=== PATIENT | male | born 1955 | race Caucasian/White ===

== ENCOUNTER 2017-02-24 08:54 | Emergency (ER) | payer OTHER ==
[2017-02-24 09:05] VITALS: BP 140/83; PULSE 79; O2SAT 97
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
[2017-02-24 10:09] LABS: Collection Type VOID; Leukocyte Esterase NEGATIVE (NEGATIVE)
[2017-02-24 10:10] LABS: ADD URINE CULTURE? NO (NO); Bilirubin NEGATIVE (NEGATIVE); Blood NEGATIVE Ery/ul (0-5); COMPLETE URINE MICROSCOPIC? NO; Glucose NEGATIVE (NEGATIVE)
[2017-02-24 10:18] LABS: BASOPHIL % 0.3 % (0.0-0.4); Eosinophil % 3.1 % (0.00-5.0); Lymphocytes % 27.5 % (24.0-44.0); Mean Cell Volume 87.9 fl (78-100); Mean Corpuscular Hemoglobin 29.4 pg (26-32); Mean Platelet Volume 11.2 fl (6-9.5); Monocytes % 11.1 % (0.0-12.0); Platelet Count 191 K/mm3 (150-450); Red Blood Count 5.13 M/mm3 (4.1-5.6); Red Cell Distribution Width 14.3 % (11.5-14.0); White Blood Count 7.5 K/mm3 (4.0-10.5)
[2017-02-24 10:22] LABS: ALBUMIN 3.7 g/dL (3.4-5.0); ALKALINE PHOSPHATASE 51 U/L (46-116); ANION GAP 12.1 MEQ/L (5-15); BLOOD UREA NITROGEN 15 mg/dL (9-20); CHLORIDE 103 mEq/L (98-107); Carbon Dioxide 28.5 mEq/L (21-32); Glucose 105 MG/DL (70-110); Potassium 3.8 mEq/L (3.5-5.1); SGOT/AST 22 U/L (15-37); SGPT/ALT 39 U/L (12-78); SODIUM 140 mEq/L (136-145); Total Protein 7.1 gm/dL (6.4-8.2)
[2017-02-24 10:25] LABS: ACETAMINOPHEN < 2.0 ug/ml (10-30)
--- NOTE | 2017-02-24 10:29 | XRAY ---
Exam: Two-view chest from 02/24/2017. Comparison: None. Indication: Become short of breath when he lies down. Findings: Upright PA and lateral chest films were obtained. The transverse heart size is normal. The pulmonary vascular markings are not congested. I see evidence of prior sternotomy. Correlate with surgical history. The dmitry and mediastinal structures appear unremarkable. There is a thin transverse strand of plate atelectasis or scarring at the anterior lung base on the lateral image. This is not definitely seen on the PA view. The remainder of the lung [place] appears clear without air space infiltrates, pneumothorax, or pleural fluid. No acute osseous abnormality is seen. Mild lower thoracic anterior vertebral endplate spurring is seen. Impression: 1. No acute cardiopulmonary process is seen. 2. I see evidence of prior sternotomy as well as a short transverse linear strand of scarring or subsegmental atelectasis at the anterior lung base on the lateral radiograph.
[2017-02-24 10:44] LABS: TROPONIN < 0.017 ng/ml (0.000-0.056)
== END 2017-02-24 11:12 | disposition home or self-care (01) ==
LOC: ED 08:54
DX: G47.00 Insomnia, unspecified (principal); F41.9 Anxiety disorder, unspecified; R06.02 Shortness of breath
CPT/HCPCS: 36000; 36415; 71020; 80053; 80307; 80320; 81002; 83880; 83986; 84484; 85025; 93005; 99284; G0481

== ENCOUNTER 2017-03-16 08:26 | Emergency (ER) | payer OTHER ==
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
[2017-03-16 09:14] VITALS: BP 121/60; PULSE 88; O2SAT 97
== END 2017-03-16 09:13 | disposition home or self-care (01) ==
LOC: ED 08:26
DX: T78.40XA Allergy, unspecified, initial encounter (principal)
CPT/HCPCS: 99282

== ENCOUNTER 2017-11-27 21:01 | Emergency (ER) | payer OTHER ==
[2017-11-27] MEDS ORDERED: Rocephin 1000 MG INJ IM ONE (21:21)
[2017-11-27] MEDS ORDERED: TORAdol 30 mg Injection IM ONE (21:21)
[2017-11-27] MEDS ORDERED: TORAdol 30 mg Injection ONE (21:28)
[2017-11-27] MEDS ORDERED: Rocephin 1000 MG INJ ONE (21:28)
[2017-11-27] MEDS ORDERED: XYLOCAINE 1% HCL 20 ML MDV ONE (21:28)
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
[2017-11-27 21:41] LABS: BASOPHIL % 0.2 % (0.0-0.4); Basophil (Absolute #) 0.02 (0-0.4); Eosinophil % 2.5 % (0.00-5.0); Eosinophil (Absolute #) 0.21 (0-0.5); Granulocyte Absolute (ANC) 5.22 (1.4-6.9); Granulocytes % 62.8 % (36.0-66.0); Hematocrit 44.7 % (42-50); Hemoglobin 14.8 gm/dl (12.5-18.0); Lymphocyte (Absolute #) 2.26 (1.0-4.6); Lymphocytes % 27.1 % (24.0-44.0); Mean Cell Volume 90.7 fl (78-100); Mean Corpuscular Hgb Concent. 33.1 g/dl (32-36); Mean Platelet Volume 11.1 fl (6-9.5); Monocyte (Absolute #) 0.62 (0.0-1.3); Monocytes % 7.4 % (0.0-12.0); Platelet Count 188 K/mm3 (150-450); Red Blood Count 4.93 M/mm3 (4.1-5.6); White Blood Count 8.3 K/mm3 (4.0-10.5)
[2017-11-27 22:04] LABS: ANION GAP 12.6 MEQ/L (5-15); BLOOD UREA NITROGEN 11 mg/dL (9-20); CHLORIDE 103 mmol/L (98-107); Calcium 8.6 mg/dL (8.4-10.2); Carbon Dioxide 28 mmol/L (22-30); Creatinine 1 0.81 mg/dL (0.66-1.25); Glucose 129 mg/dL (74-106); Potassium 4.1 mmol/L (3.5-5.1); SODIUM 140 mmol/L (137-145)
[2017-11-27] MEDS ORDERED: BACIGUENT PACKET ONE (22:50)
[2017-11-27 22:59] VITALS: BP 140/70; PULSE 78; O2SAT 99
[2017-11-27] MEDS ORDERED: BACIGUENT PACKET TP ONE (23:01)
--- NOTE | 2017-11-28 08:13 | XRAY ---
Indication: Pain, swelling, erythema, drainage following carpal tunnel surgery 5 days ago. Possible compartment syndrome. Multiple contiguous axial images obtained through the mid to distal left forearm to include the wrist without contrast as ordered. Two-dimensional sagittal and coronal reformatted images obtained. Comparison: None There is anterior subcutaneous soft tissue induration presumed postoperative. No suspicious fluid/air collection. The median nerve is prominent and edematous with surrounding induration presumed postoperative inflammation. There is mild radiocarpal degenerative joint space narrowing and radial scaphoid subcortical degenerative cysts. Scapholunate interval is slightly widened concerning for underlying ligamentous tear. No acute fracture, dislocation, or osseous destructive process. Impression: 1. Prominent/edematous median nerve presumed postoperative inflammation. 2. No suspicious fluid/air collection. 3. Widened scapholunate interval concerning for underlying ligamentous tear. 4. Radiocarpal degenerative changes. Comment: Preliminary interpretation was made by [facility]. No critical discrepancy. CTDI 74.34
== END 2017-11-27 22:59 | disposition home or self-care (01) ==
LOC: ED 21:01
DX: L03.114 Cellulitis of left upper limb (principal); T79.A12A Traumatic compartment syndrome of left upper extremity, initial encounter; Z98.890 Other specified postprocedural states
CPT/HCPCS: 36415; 73200; 80048; 85025; 96372; 99284; J0696; J1885; A9270-GY

== ENCOUNTER 2019-12-09 17:40 | Emergency (ER) | payer OTHER ==
[2019-12-09] MEDS ORDERED: ULTRAM 50 MG PO ONE (18:10)
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
[2019-12-09] MEDS ORDERED: ULTRAM 50 MG ONE (18:28)
[2019-12-09] MEDS ORDERED: Rocephin 1000 MG INJ IM ONE (18:43)
[2019-12-09] MEDS ORDERED: Rocephin 1000 MG INJ ONE (18:51)
[2019-12-09] MEDS ORDERED: XYLOCAINE 1% HCL 20 ML MDV ONE (18:56)
[2019-12-09 19:27] VITALS: BP 146/99; PULSE 73
--- NOTE | 2019-12-09 21:05 | XRAY ---
Indication: Saw injury. Comparison: None 3 views of the left 3rd finger demonstrates tiny tuft amputation with soft tissue swelling/laceration. No other bony, articular, or soft tissue abnormalities
[2019-12-10 03:30] VITALS: O2SAT 96
== END 2019-12-09 19:25 | disposition home or self-care (01) ==
LOC: ED 17:40
DX: S68.123A Partial traumatic metacarpophalangeal amputation of left middle finger, initial encounter (principal); Z89.022 Acquired absence of left finger(s); W31.2XXA Contact with powered woodworking and forming machines, initial encounter; Y93.89 Activity, other specified; Y92.89 Other specified places as the place of occurrence of the external cause
CPT/HCPCS: 73140; 96372; 99284; J0696; A9270-GY

== ENCOUNTER 2020-06-05 20:43 | Emergency (ER) | payer OTHER ==
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
[2020-06-05] MEDS ORDERED: VALIUM 10 MG/2 ML SYRINGE IM ONE (21:35)
[2020-06-05] MEDS ORDERED: VALIUM 10 MG/2 ML SYRINGE ONE (21:37)
[2020-06-05 21:50] VITALS: BP 129/79; PULSE 68
[2020-06-05 21:51] VITALS: O2SAT 100
== END 2020-06-05 22:12 | disposition home or self-care (01) ==
LOC: ED 20:43
DX: F41.9 Anxiety disorder, unspecified (principal); F30.9 Manic episode, unspecified; Z79.899 Other long term (current) drug therapy; G40.909 Epilepsy, unspecified, not intractable, without status epilepticus; I10 Essential (primary) hypertension; I25.10 Atherosclerotic heart disease of native coronary artery without angina pectoris
CPT/HCPCS: 96372; 99283; J3360

== ENCOUNTER 2021-11-18 02:47 | Observation (INO) | payer OTHER ==
[2021-11-18] MEDS ORDERED: TYLENOL 325 MG PO STA (02:50)
[2021-11-18] MEDS ORDERED: Sodium Chloride 0.9% 1000 ML 1,000 ML IV STA (02:50)
[2021-11-18] MEDS ORDERED: TYLENOL 325 MG ONE (03:25)
[2021-11-18 03:26] LABS: Absolute Neutrophil Ct (ANC) 4.07 (1.4-6.9); Basophil (Absolute #) 0.02 (0-0.4); Eosinophil % 0.7 % (0.00-5.0); Eosinophil (Absolute #) 0.05 (0-0.5); Hematocrit 42.9 % (42-50); Lymphocyte (Absolute #) 1.55 (1.0-4.6); Lymphocytes % 22.7 % (24.0-44.0); Mean Cell Volume 90.1 fl (78-100); Mean Corpuscular Hemoglobin 29.4 pg (26-32); Mean Corpuscular Hgb Concent. 32.6 g/dl (32-36); Monocyte (Absolute #) 1.13 (0.0-1.3); Monocytes % 16.6 % (0.0-12.0); Neutrophil % 59.7 % (36.0-66.0); Platelet Count 160 K/mm3 (150-450); Red Blood Count 4.76 M/mm3 (4.1-5.6); Red Cell Distribution Width 15.3 % (11.5-14.0); White Blood Count 6.8 K/mm3 (4.0-10.5)
[2021-11-18] MEDS ORDERED: Sodium Chloride 0.9% 1000 ML 1,000 ML ONE (03:26)
[2021-11-18 03:47] LABS: ALBUMIN 3.6 g/dL (3.5-5.0); ALKALINE PHOSPHATASE 48 U/L (38-126); ANION GAP 11.2 MEQ/L (5-15); BLOOD UREA NITROGEN 12 mg/dL (9-20); CHLORIDE 102 mmol/L (98-107); Calcium 8.4 mg/dL (8.4-10.2); Carbon Dioxide 26 mmol/L (22-30); Creatinine 1 0.96 mg/dL (0.66-1.25); EST GLOMERULAR FILTRATION RATE > 60.0 ML/MIN; Glucose 97 mg/dL (74-106); MAGNESIUM 1.6 mg/dL (1.6-2.3); NT PRO BNP 415 pg/mL (0-900); Potassium 4.2 mmol/L (3.5-5.1); SGOT/AST 32 U/L (17-59); SGPT/ALT 29 U/L (0-50); SODIUM 135 mmol/L (137-145); Total Protein 6.3 g/dL (6.3-8.2)
[2021-11-18] MEDS ORDERED: ROCEPHIN 1 Gm-D5w 50 ml Bag** 1 G/50 ML IVPB IV STA (04:01)
[2021-11-18] MEDS ORDERED: Zithromax 500 MG/ 250 ML NaCl Premix 500 MG/250 ML IVPB IV ONE ×2 (04:02→05:44)
[2021-11-18 04:07] LABS: COVID AG -BINAX NOW RAPID TEST NEGATIVE (NEGATIVE); INFLUENZA A NEGATIVE (NEGATIVE); INFLUENZA B NEGATIVE (NEGATIVE)
[2021-11-18] MEDS ORDERED: ROCEPHIN 1 Gm-D5w 50 ml Bag** 1 G/50 ML IVPB IV ONE (04:08)
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
[2021-11-18 04:20] LABS: Appearance CLEAR (CLEAR); Bacteria RARE /HPF (NEGATIVE); Bilirubin NEGATIVE (NEGATIVE); Blood LARGE Ery/ul (0-5); Epithelial Cells RARE /HPF (FEW); Glucose NEGATIVE (NEGATIVE); Ketones TRACE (NEGATIVE); Leukocyte Esterase NEGATIVE (NEGATIVE); Mucus SLIGHT /HPF (NEGATIVE); Nitrite NEGATIVE (NEGATIVE); Protein,Urine Dip 30 (Negative); Specific Gravity 1.025 (1.005-1.025); Urobilinogen 2 mg/dL (0-1); WBC 0-2 /HPF (0-5)
[2021-11-18 04:21] LABS: RBC >101 /HPF (0-2)
[2021-11-18] MEDS ORDERED: BENADRYL 50 MG/ML IV ONE (05:37)
[2021-11-18] MEDS ORDERED: BENADRYL 50 MG/ML ONE (05:44)
--- NOTE | 2021-11-18 08:58 | XRAY ---
Indication: Fever and confusion. Status post fall. Multiple contiguous axial images obtained through the head without contrast. Comparison: None Age-appropriate global atrophy. No acute intracranial hemorrhage, abnormal extra-axial fluid collection, or mass effect. Fourth ventricle is midline without hydrocephalus. Sosa-white matter differentiation preserved. Bony calvarium intact with incidental mild hyperostosis frontalis interna. Visualized paranasal sinuses and mastoid air cells are clear. Impression: Negative CT head without contrast exam. Comment: Preliminary interpretation made by [facility]. No critical discrepancy.
--- NOTE | 2021-11-18 09:00 | XRAY ---
Indication: Fever, cough, and weakness. Comparison: None Portable chest clear. Heart not enlarged with CABG. Bony thorax intact with mild osteopenia and degenerative changes. Impression: Nonacute chest with chronic features.
--- NOTE | 2021-11-18 09:00 | XRAY ---
Indication: Elevated d-dimer. Pulmonary embolus. Multiple contiguous axial images obtained through the chest using 100 cc Isovue 370 contrast and PE protocol. Comparison: None There opacification of the pulmonary arteries. Minimal respiration artifact limits evaluation for pulmonary embolus. No obvious pulmonary most. Heart not enlarged with incidental CABG. Aorta is normal in course and caliber. Tiny subcarinal calcified node. No pathologic mediastinal/hilar lymphadenopathy. Lungs demonstrates mild bilateral dependent atelectasis, minimal right middle lobe subsegmental atelectasis/scarring, and small left lower lobe calcified granuloma. No suspicious pulmonary mass, infiltrate, or effusion. Bony thorax intact with mild degenerative changes throughout the spine and sternotomy wires. Limited upper abdomen demonstrates fatty liver, 14 cm splenomegaly, cholecystectomy, and splenic calcified granulomas. Impression: 1. Negative pulmonary embolus. 2. No acute cardiopulmonary abnormalities. 3. Incidental scattered atelectasis/scarring, fatty liver, splenomegaly, chronic bony findings, and old granulomatous disease. Comment: Preliminary interpretation made by C. No critical discrepancy.
[2021-11-18] MEDS: DELTASONE 20 MG PO SCH (10:34)
[2021-11-18] MEDS ORDERED: PHARMACY DOSING REQUEST MC ONE (11:50)
[2021-11-18] MEDS ORDERED: Sodium Chloride 0.9% 1000 ML 1,000 ML IV SCH (13:00)
--- NOTE | 2021-11-18 13:05 | PCM.HP ---
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 11/18/21 03:04 Completed Group A Strep Stat Lab 11/18/21 03:40 Completed HEMOGLOBIN A1C Urgent Lab 11/18/21 02:50 Completed INFLUENZA A+B RAFI Stat Lab 11/18/21 03:40 Completed Lactic Acid Stat Lab 11/18/21 03:20 Completed MAGNESIUM Stat Lab 11/18/21 02:50 Completed [place] Screen Stat Lab 11/18/21 02:55 Completed NT PRO BNP Stat Lab 11/18/21 02:50 Completed TROPONIN Q3H Lab 11/18/21 03:00 Completed TROPONIN Q3H Lab 11/18/21 06:21 Completed TROPONIN Q3H Lab 11/18/21 09:10 Completed TROPONIN Q3H Lab 11/18/21 12:20 Completed TROPONIN Q3H Lab 11/18/21 15:00 Ordered UA W/RFX UR CULTURE Stat Lab 11/18/21 03:52 Completed Acetaminophen 325 mg [Tylenol 325 mg] Med 11/18/21 03:25 Discontinued 975 mg .ROUTE .STK-MED ONE Acetaminophen 325 mg [Tylenol 325 mg] Med 11/18/21 02:50 Discontinued 975 mg PO STAT STA Azithromycin 500 mg/250 ml [Zithromax 500 MG/ 250 ML Med 11/19/21 10:00 Discontinued NaCl Premix] 500 mg in 250 ml IV Q24H10 Azithromycin 500 mg/250 ml [Zithromax 500 MG/ 250 ML Med 11/18/21 04:02 Discontinued NaCl Premix] 500 mg in 250 ml IV STAT Azithromycin 500 mg/250 ml [Zithromax 500 MG/ 250 ML Med 11/18/21 05:44 Discontinued NaCl Premix] 500 mg in 250 ml IV UD Ceftriaxone 1 GM/50 ML PREMIX* [ROCEPHIN 1 Gm-D5w 50 ml Med 11/18/21 04:01 Discontinued Bag] 1 g in 50 ml IV STAT Ceftriaxone 1 GM/50 ML PREMIX* [ROCEPHIN 1 Gm-D5w 50 ml Med 11/18/21 04:08 Discontinued Bag] 1 g in 50 ml IV UD Diphenhydramine HCl 50 mg/ml [Benadryl 50 mg/ml] Med 11/18/21 05:44 Discontinued 50 mg .ROUTE .STK-MED ONE Diphenhydramine HCl 50 mg/ml [Benadryl 50 mg/ml] Med 11/18/21 05:37 Discontinued 50 mg IV STAT ONE Levofloxacin [Levofloxacin 250MG Tablet] Med 11/18/21 13:00 Active 250 mg PO DAILY Levofloxacin [Levofloxacin 500 MG Tablet] Med 11/18/21 13:00 Active 500 mg PO DAILY NaCl 0.9% 1000 ml [Sodium Chloride 0.9% 1000 ML] 1,000 Med 11/18/21 03:26 Discontinued ml .ROUTE UD NaCl 0.9% 1000 ml [Sodium Chloride 0.9% 1000 ML] 1,000 Med 11/18/21 13:00 Active ml IV 50 mls/hr NaCl 0.9% 1000 ml [Sodium Chloride 0.9% 1000 ML] 1,000 Med 11/18/21 02:50 Discontinued ml IV 999 mls/hr Pharmacy Dosing Request Med 11/18/21 11:50 Discontinued 1 each MC STAT ONE Prednisone 20 mg [Deltasone 20 mg] Med 11/18/21 10:00 Active 50 mg PO DAILY Oxygen Nasal Cannula 2 lpm RT 11/18/21 06:58 Active Pulse Oximetry CONTINUOUS RT 11/18/21 07:00 Active Respiratory Therapy Consult ROUTINE RT 11/18/21 07:00 Completed Transfer Order Routine Transfer 11/18/21 Completed Code(s): J18.9 - PNEUMONIA, UNSPECIFIED ORGANISM (2) Shortness of breath Current Visit: Yes Status: Acute Code(s): R06.02 - SHORTNESS OF BREATH
[2021-11-18] MEDS: Levofloxacin 500 MG Tablet PO SCH (13:22)
[2021-11-18] MEDS: Levofloxacin 250MG Tablet PO SCH (13:22)
[2021-11-18] MEDS ORDERED: MEDICATION INTERVENTION PO SCH ×2 (13:30)
[2021-11-18] MEDS ORDERED: Lomotil PO PRN (18:22)
[2021-11-18] MEDS ORDERED: TYLENOL EXTRA STRENGTH 500 MG PO PRN (18:23)
[2021-11-18 20:25] LABS: 027 TOX PROD PRESUMPTIVE NEGATIVE (NEGATIVE); TOXIGENIC C. DIFF ORG NEGATIVE (NEGATIVE)
[2021-11-18] MEDS ORDERED: NON-FORMULARY ITEM (Atorvastatin Calcium [Atorvastatin Calcium] 20 MG Tablet) PO SCH (22:00)
[2021-11-18] MEDS ORDERED: ZOCOR 20MG PO SCH (22:00)
[2021-11-18] MEDS: Effexor XR 75 MG PO SCH (22:00)
[2021-11-18] MEDS ORDERED: Zestril 10 MG PO SCH (22:00)
[2021-11-18] MEDS ORDERED: NON-FORMULARY ITEM (Clonazepam [Clonazepam] 1 MG Tablet) PO SCH (22:00)
[2021-11-18] MEDS ORDERED: LURASIDONE HCL 80 MG PO SCH (22:00)
[2021-11-18] MEDS ORDERED: NON-FORMULARY ITEM (Venlafaxine Hcl [Venlafaxine Hcl Er] 75 MG Tab.Er.24) PO SCH (22:00)
[2021-11-18] MEDS ORDERED: Flomax 0.4 MG PO SCH (22:00)
[2021-11-18] MEDS ORDERED: KLONOPIN PO SCH (22:00)
[2021-11-18] MEDS ORDERED: PRAZOSIN HCL 2 MG PO SCH (22:00)
[2021-11-18] MEDS ORDERED: NON-FORMULARY ITEM (Divalproex Sodium [Depakote] 500 MG Tablet.Dr) PO SCH (22:00)
[2021-11-19 08:15] VITALS: O2SAT 95
[2021-11-19] MEDS: DELTASONE 20 MG PO SCH (08:16)
[2021-11-19] MEDS: Levofloxacin 250MG Tablet PO SCH (08:17)
[2021-11-19] MEDS: Levofloxacin 500 MG Tablet PO SCH (08:18)
--- NOTE | 2021-11-19 08:32 | PCM.NOTE ---
Date and Time: 11/19/21829 Subjective Assessment: doing ok - Review of Systems Constitutional: No Fever, No Chills Eyes: No Symptoms Ears, Nose, & Throat: No Symptoms Respiratory: Cough, Orthopnea, Short Of Breath Cardiac: No Chest Pain, No Edema, No Syncope Abdominal/Gastrointestinal: No Abdominal Pain, No Nausea, No Vomiting, No Diarrhea Genitourinary Symptoms: No Dysuria Musculoskeletal: No Back Pain, No Neck Pain Skin: No Rash Neurological: No Dizziness, No Focal Weakness, No Sensory Changes Psychological: No Symptoms Endocrine: No Symptoms Hematologic/Lymphatic: No Symptoms Immunological/Allergic: No Symptoms Objective Exam General Appearance: no apparent distress, alert Neurologic Exam: alert, oriented x 3, cooperative, normal mood/affect, nml cerebellar function, sensation nml, No motor deficits Skin Exam: normal color, warm, dry Eye Exam: PERRL, EOMI, eyes nml inspection Ears, Nose, Throat Exam: normal ENT inspection, pharynx normal, moist mucous membranes Neck Exam: normal inspection, non-tender, supple, full range of motion Respiratory Exam: diminished breath sounds, crackles/rales, rhonchi, wheezing, No respiratory distress Cardiovascular Exam: regular rate/rhythm, normal heart sounds Gastrointestinal/Abdomen Exam: soft, No tenderness, No mass Extremity Exam: normal inspection, normal range of motion Back Exam: normal inspection, normal range of motion, No CVA tenderness, No vertebral tenderness Male Genitalia Exam: deferred Rectal Exam: deferred OBJECTIVE DATA Vital Signs: Vital Signs - 24 hr Temp Pulse Resp BP Pulse Ox 11/19/21 08:14 95 11/19/21 07:12 98.6 F 67 16 129/64 96 11/19/21 04:00 97.9 F 75 20 146/89 94 L 11/19/21 00:00 97.7 F 75 20 142/80 91 L 11/18/21 19:55 98.2 F 88 20 142/86 95 11/18/21 19:10 92 L 11/18/21 16:00 97.3 F 85 19 153/79 94 L 11/18/21 12:00 97.8 F 100 H 22 135/81 95 Pain Assessment - Last Documented Pain Intensity 0 Pain Scale Used FLACC Intake and Output: Intake & Output 11/16/21 11/17/21 11/18/21 11/19/21 11:59 11:59 11:59 11:59 Intake Total 240 620 Output Total 850 1000 Balance -610 -380 Weight 132.4 kg 130.4 kg Lab Results: Lab Results-Last 24 Hours 11/18/21 11/18/21 11/18/21 Range/Units 02:50 09:10 12:20 Hemoglobin A1c 5.38 (4.5-6.0) % Troponin I < 0.012 < 0.012 (0.000-0.034) ng/mL C. difficile Screen (NEGATIVE) C.difficile 027-NAP1-B1 (NEGATIVE) 11/18/21 11/18/21 Range/Units 15:22 19:22 Hemoglobin A1c (4.5-6.0) % Troponin I < 0.012 (0.000-0.034) ng/mL C. difficile Screen NEGATIVE (NEGATIVE) C.difficile 027-NAP1-B1 PRESUMPTIVE NEGATIVE (NEGATIVE) Radiology Exams: Radiology Procedures Category Date Time Status CHEST 1 VIEW (PORTABLE) Stat Exams 11/18/21 02:51 Completed CHEST WITH CONTRAST [CT] Stat Exams 11/18/21 04:09 Completed HEAD WITHOUT CONTRAST [CT] Stat Exams 11/18/21 04:10 Completed Assessment/Plan (1) Right lower lobe pneumonia Current Visit: Yes Status: Acute Qualifiers: Pneumonia type: due to Haemophilus influenzae Qualified Code(s): J14 - Pneumonia due to Hemophilus influenzae Assessment & Plan: Chief Complaint Diagnosis shortness of breath for 3-4 days Allergies Allergy/AdvReac Type Severity Reaction Status Date / Time ceftriaxone [From Rocephin] Allergy Intermediate Hives Verified 11/18/21 06:56 codeine Allergy Intermediate Rash Verified 11/18/21 06:56 Vital Signs (Last 24 hours) Temp Pulse Resp BP Pulse Ox 11/19/21 08:14 95 11/19/21 07:12 98.6 F 67 16 129/64 96 11/19/21 04:00 97.9 F 75 20 146/89 94 L 11/19/21 00:00 97.7 F 75 20 142/80 91 L 11/18/21 19:55 98.2 F 88 20 142/86 95 11/18/21 19:10 92 L 11/18/21 16:00 97.3 F 85 19 153/79 94 L 11/18/21 12:00 97.8 F 100 H 22 135/81 95 Current Medications Generic Name Dose Route Start Last Admin Trade Name Freq PRN Reason Stop Dose Admin Acetaminophen 500 mg 11/18/21 18:23 11/18/21 20:11 Acetaminophen 500 Mg Tablet PO 12/18/21 18:22 500 mg Q6HPRN PRN Administration PAIN AND/OR FEVER Clonazepam 2 mg 11/18/21 22:00 11/18/21 21:49 Clonazepam 2 Mg Tablet PO 12/18/21 21:59 2 mg QHS BRUCE Administration Diphenoxylate HCl/Atropine 1 tablet 11/18/21 18:22 11/18/21 20:11 Diphenoxylate Hcl/Atropine 1 Tablet PO 12/18/21 18:21 1 tablet QID PRN PRN Administration DIARRHEA Divalproex Sodium 500 mg 11/18/21 22:00 11/18/21 21:48 Divalproex Sodium 250 Mg Tablet Delayed Release PO 12/18/21 21:59 500 mg QHS BRUCE Administration Levofloxacin 500 mg 11/18/21 13:00 11/19/21 08:18 Levofloxacin 500 Mg Tablet PO 12/18/21 12:59 500 mg DAILY BRUCE Administration Levofloxacin 250 mg 11/18/21 13:00 11/19/21 08:17 Levofloxacin 250 Mg Tab PO 12/18/21 12:59 250 mg DAILY BRUCE Administration Lisinopril 10 mg 11/18/21 22:00 11/18/21 21:49 Lisinopril 10 Mg Tablet PO 12/18/21 21:59 10 mg QHS BRUCE Administration Miscellaneous Information 1 each 11/18/21 13:30 Medication Intervention 1 Each Each PO 12/18/21 13:29 .RN TO CHECK ON BRUCE Miscellaneous Information 1 each 11/18/21 13:30 Medication Intervention 1 Each Each PO 12/18/21 13:29 .RN TO CHECK ON BRUCE Prednisone 50 mg 11/18/21 10:00 11/19/21 08:16 Prednisone 20 Mg Tablet PO 12/18/21 09:59 50 mg DAILY BRUCE Administration Simvastatin 20 mg 11/18/21 22:00 11/18/21 21:49 Simvastatin 20 Mg Tablet PO 12/18/21 21:59 20 mg QHS BRUCE Administration Tamsulosin HCl 0.4 mg 11/18/21 22:00 11/18/21 21:49 Tamsulosin Hcl 0.4 Mg Cap PO 12/18/21 21:59 0.4 mg QHS BRUCE Administration Venlafaxine HCl 150 mg 11/18/21 22:00 11/18/21 22:00 Venlafaxine Hcl 75 Mg Extended Release Capsule PO 12/18/21 21:59 Not Given HS BRUCE Discontinued Medications Generic Name Dose Route Start Last Admin Trade Name Ricardoq PRN Reason Stop Dose Admin Acetaminophen 975 mg 11/18/21 02:50 11/18/21 03:30 Acetaminophen 325 Mg Tablet PO 11/18/21 02:51 975 mg STAT STA Administration Acetaminophen Confirm 11/18/21 03:25 Acetaminophen 325 Mg Tablet Administered 11/18/21 03:26 Dose 975 mg .ROUTE .STK-MED ONE Diphenhydramine HCl 50 mg 11/18/21 05:37 11/18/21 05:49 Diphenhydramine Hcl 50 Mg/Ml Vial IV 11/18/21 05:38 50 mg STAT ONE Administration Diphenhydramine HCl Confirm 11/18/21 05:44 Diphenhydramine Hcl 50 Mg/Ml Vial Administered 11/18/21 05:45 Dose 50 mg .ROUTE .STK-MED ONE Sodium Chloride 1,000 mls @ 999 mls/hr 11/18/21 02:50 11/18/21 05:18 Sodium Chloride 0.9% 1000 Ml IV 11/18/21 03:50 Infused .Q1H1M STA Infusion Sodium Chloride Confirm 11/18/21 03:26 Sodium Chloride 0.9% 1000 Ml Administered 11/18/21 03:27 Dose 1,000 mls @ ud .ROUTE .STK-MED ONE Ceftriaxone Sodium/Dextrose 1 g in 50 mls @ 100 mls/hr 11/18/21 04:01 11/18/21 05:17 Rocephin 1 Gm-D5w 50 Ml Bag IV 11/18/21 04:30 Infused STAT STA Infusion Azithromycin 500 mg in 250 mls @ 250 mls/hr 11/18/21 04:02 11/18/21 05:49 Zithromax 500 Mg/ 250 Ml Nacl Premix IV 11/18/21 05:01 250 mls/hr STAT ONE Administration Ceftriaxone Sodium/Dextrose Confirm 11/18/21 04:08 Rocephin 1 Gm-D5w 50 Ml Bag Administered 11/18/21 04:09 Dose 1 g in 50 mls @ ud IV .STK-MED ONE Azithromycin Confirm 11/18/21 05:44 Zithromax 500 Mg/ 250 Ml Nacl Premix Administered 11/18/21 05:45 Dose 500 mg in 250 mls @ ud IV .STK-MED ONE Azithromycin 500 mg in 250 mls @ 250 mls/hr 11/19/21 10:00 Zithromax 500 Mg/ 250 Ml Nacl Premix IV 12/19/21 09:59 Q24H10 BRUCE Sodium Chloride 1,000 mls @ 50 mls/hr 11/18/21 13:00 Sodium Chloride 0.9% 1000 Ml IV 12/18/21 12:59 .Q20H BRUCE Non-Formulary Medication 1 each 11/18/21 11:50 11/18/21 15:30 Pharmacy Dosing Request MC 11/18/21 11:51 Not Given STAT ONE Intake & Output (Last 24 hours) 11/16/21 11/17/21 11/18/21 11/19/21 11:59 11:59 11:59 11:59 Intake Total 240 620 Output Total 850 1000 Balance -610 -380 Weight 132.4 kg 130.4 kg Microbiology Results (Last 24 hours) 11/18/21 03:52 Catherized Urine Culture - Final NO GROWTH Laboratory Results (Last 24 hours) 11/18/21 11/18/21 11/18/21 19:22 15:22 12:20 Hemoglobin A1c Troponin I < 0.012 < 0.012 C. difficile Screen NEGATIVE C.difficile 027-NAP1-B1 PRESUMPTIVE NEGATIVE 11/18/21 11/18/21 09:10 02:50 Hemoglobin A1c 5.38 Troponin I < 0.012 C. difficile Screen C.difficile 027-NAP1-B1 Orders (Last 24 hours) Category Date Time Status CDIFF (INHOUSE) [C.Difficile by PCR] Urgent Lab 11/18/21 19:22 Completed TROPONIN Q3H Lab 11/18/21 09:10 Completed TROPONIN Q3H Lab 11/18/21 12:20 Completed TROPONIN Q3H Lab 11/18/21 15:22 Completed Acetaminophen 500 mg [Tylenol Extra Strength 500 mg* Med 11/18/21 18:23 Active ] 500 mg PO Q6HPRN PRN Azithromycin 500 mg/250 ml [Zithromax 500 MG/ 250 ML Med 11/19/21 10:00 Discontinued NaCl Premix] 500 mg in 250 ml IV Q24H10 Clonazepam [Klonopin] Med 11/18/21 22:00 Active 2 mg PO QHS Diphenoxylate HCl/Atropine [Lomotil] Med 11/18/21 18:22 Active 1 tablet PO QID PRN PRN Divalproex Sodium 250 mg [Divalproex DR 250 mg Tab] Med 11/18/21 22:00 Active 500 mg PO QHS Levofloxacin [Levofloxacin 250MG Tablet] Med 11/18/21 13:00 Active 250 mg PO DAILY Levofloxacin [Levofloxacin 500 MG Tablet] Med 11/18/21 13:00 Active 500 mg PO DAILY Lisinopril 10 mg [Zestril 10 MG] Med 11/18/21 22:00 Active 10 mg PO QHS Medication Intervention Med 11/18/21 13:30 Active 1 each PO .RN TO CHECK ON Medication Intervention Med 11/18/21 13:30 Active 1 each PO .RN TO CHECK ON NaCl 0.9% 1000 ml [Sodium Chloride 0.9% 1000 ML] 1,000 Med 11/18/21 13:00 Discontinued ml IV 50 mls/hr Pharmacy Dosing Request Med 11/18/21 11:50 Discontinued 1 each STAT ONE Prednisone 20 mg [Deltasone 20 mg] Med 11/18/21 10:00 Active 50 mg PO DAILY Simvastatin 20Mg [Zocor 20Mg] Med 11/18/21 22:00 Active 20 mg PO QHS Tamsulosin HCl 0.4 mg [Flomax 0.4 MG] Med 11/18/21 22:00 Active 0.4 mg PO QHS Venlafaxine HCl ER 75 mg [Effexor XR 75 MG] Med 11/18/21 22:00 Active 150 mg PO HS Code(s): J18.9 - PNEUMONIA, UNSPECIFIED ORGANISM (2) Shortness of breath Current Visit: Yes Status: Acute Code(s): R06.02 - SHORTNESS OF BREATH
[2021-11-19] MEDS ORDERED: Zithromax 500 MG/ 250 ML NaCl Premix 500 MG/250 ML IVPB IV SCH (10:00)
[2021-11-19 11:47] VITALS: BP 158/79; PULSE 78
--- NOTE | 2021-11-19 14:03 | PCM.DS ---
Discharge Summary Date of Admission: 11/18/21 07:55 Admitting Physician: BEVERLY SMITH Primary Care Provider: [facility] Allergies Allergies ceftriaxone [From Rocephin] Allergy (Intermediate, Verified 11/18/21 06:56) Hives codeine Allergy (Intermediate, Verified 11/18/21 06:56) Rash Hospital Summary - Hospital Course Hospital Course: Chief Complaint Diagnosis shortness of breath for 3-4 days Allergies Allergy/AdvReac Type Severity Reaction Status Date / Time ceftriaxone [From Rocephin] Allergy Intermediate Hives Verified 11/18/21 06:56 codeine Allergy Intermediate Rash Verified 11/18/21 06:56 Vital Signs (Last 24 hours) Temp Pulse Resp BP Pulse Ox 11/19/21 11:45 97.9 F 78 16 158/79 95 11/19/21 08:14 95 11/19/21 07:12 98.6 F 67 16 129/64 96 11/19/21 04:00 97.9 F 75 20 146/89 94 L 11/19/21 00:00 97.7 F 75 20 142/80 91 L 11/18/21 19:55 98.2 F 88 20 142/86 95 11/18/21 19:10 92 L 11/18/21 16:00 97.3 F 85 19 153/79 94 L Home Medications Medication Instructions Recorded Confirmed Last Taken Type Levofloxacin [Levofloxacin 500 500 mg PO DAILY 5 Days #5 tablet 11/19/21 Unknown Rx MG Tablet] Current Medications Generic Name Dose Route Start Last Admin Trade Name Freq PRN Reason Stop Dose Admin Acetaminophen 500 mg 11/18/21 18:23 11/18/21 20:11 Acetaminophen 500 Mg Tablet PO 12/18/21 18:22 500 mg Q6HPRN PRN Administration PAIN AND/OR FEVER Clonazepam 2 mg 11/18/21 22:00 11/18/21 21:49 Clonazepam 2 Mg Tablet PO 12/18/21 21:59 2 mg QHS BRUCE Administration Diphenoxylate HCl/Atropine 1 tablet 11/18/21 18:22 11/18/21 20:11 Diphenoxylate Hcl/Atropine 1 Tablet PO 12/18/21 18:21 1 tablet QID PRN PRN Administration DIARRHEA Divalproex Sodium 500 mg 11/18/21 22:00 11/18/21 21:48 Divalproex Sodium 250 Mg Tablet Delayed Release PO 12/18/21 21:59 500 mg QHS BRUCE Administration Levofloxacin 500 mg 11/18/21 13:00 11/19/21 08:18 Levofloxacin 500 Mg Tablet PO 12/18/21 12:59 500 mg DAILY BRUCE Administration Levofloxacin 250 mg 11/18/21 13:00 11/19/21 08:17 Levofloxacin 250 Mg Tab PO 12/18/21 12:59 250 mg DAILY BRUCE Administration Lisinopril 10 mg 11/18/21 22:00 11/18/21 21:49 Lisinopril 10 Mg Tablet PO 12/18/21 21:59 10 mg QHS BRUCE Administration Miscellaneous Information 1 each 11/18/21 13:30 Medication Intervention 1 Each Each PO 12/18/21 13:29 .RN TO CHECK ON BRUCE Miscellaneous Information 1 each 11/18/21 13:30 Medication Intervention 1 Each Each PO 12/18/21 13:29 .RN TO CHECK ON BRUCE Prednisone 50 mg 11/18/21 10:00 11/19/21 08:16 Prednisone 20 Mg Tablet PO 12/18/21 09:59 50 mg DAILY BRUCE Administration Simvastatin 20 mg 11/18/21 22:00 11/18/21 21:49 Simvastatin 20 Mg Tablet PO 12/18/21 21:59 20 mg QHS BRUCE Administration Tamsulosin HCl 0.4 mg 11/18/21 22:00 11/18/21 21:49 Tamsulosin Hcl 0.4 Mg Cap PO 12/18/21 21:59 0.4 mg QHS BRUCE Administration Venlafaxine HCl 150 mg 11/18/21 22:00 11/18/21 22:00 Venlafaxine Hcl 75 Mg Extended Release Capsule PO 12/18/21 21:59 Not Given HS BRUCE Discontinued Medications Generic Name Dose Route Start Last Admin Trade Name Freq PRN Reason Stop Dose Admin Acetaminophen 975 mg 11/18/21 02:50 11/18/21 03:30 Acetaminophen 325 Mg Tablet PO 11/18/21 02:51 975 mg STAT STA Administration Acetaminophen Confirm 11/18/21 03:25 Acetaminophen 325 Mg Tablet Administered 11/18/21 03:26 Dose 975 mg .ROUTE .STK-MED ONE Diphenhydramine HCl 50 mg 11/18/21 05:37 11/18/21 05:49 Diphenhydramine Hcl 50 Mg/Ml Vial IV 11/18/21 05:38 50 mg STAT ONE Administration Diphenhydramine HCl Confirm 11/18/21 05:44 Diphenhydramine Hcl 50 Mg/Ml Vial Administered 11/18/21 05:45 Dose 50 mg .ROUTE .STK-MED ONE Sodium Chloride 1,000 mls @ 999 mls/hr 11/18/21 02:50 11/18/21 05:18 Sodium Chloride 0.9% 1000 Ml IV 11/18/21 03:50 Infused .Q1H1M STA Infusion Sodium Chloride Confirm 11/18/21 03:26 Sodium Chloride 0.9% 1000 Ml Administered 11/18/21 03:27 Dose 1,000 mls @ ud .ROUTE .STK-MED ONE Ceftriaxone Sodium/Dextrose 1 g in 50 mls @ 100 mls/hr 11/18/21 04:01 11/18/21 05:17 Rocephin 1 Gm-D5w 50 Ml Bag IV 11/18/21 04:30 Infused STAT STA Infusion Azithromycin 500 mg in 250 mls @ 250 mls/hr 11/18/21 04:02 11/18/21 05:49 Zithromax 500 Mg/ 250 Ml Nacl Premix IV 11/18/21 05:01 250 mls/hr STAT ONE Administration Ceftriaxone Sodium/Dextrose Confirm 11/18/21 04:08 Rocephin 1 Gm-D5w 50 Ml Bag Administered 11/18/21 04:09 Dose 1 g in 50 mls @ ud IV .STK-MED ONE Azithromycin Confirm 11/18/21 05:44 Zithromax 500 Mg/ 250 Ml Nacl Premix Administered 11/18/21 05:45 Dose 500 mg in 250 mls @ ud IV .STK-MED ONE Azithromycin 500 mg in 250 mls @ 250 mls/hr 11/19/21 10:00 Zithromax 500 Mg/ 250 Ml Nacl Premix IV 12/19/21 09:59 Q24H10 BRUCE Sodium Chloride 1,000 mls @ 50 mls/hr 11/18/21 13:00 Sodium Chloride 0.9% 1000 Ml IV 12/18/21 12:59 .Q20H BRUCE Non-Formulary Medication 1 each 11/18/21 11:50 11/18/21 15:30 Pharmacy Dosing Request 11/18/21 11:51 Not Given STAT ONE Intake & Output (Last 24 hours) 11/17/21 11/18/21 11/19/21 11/20/21 11:59 11:59 11:59 11:59 Intake Total 240 1100 Output Total 850 1000 400 Balance -610 100 -400 Weight 132.4 kg 130.4 kg Microbiology Results (Last 24 hours) 11/18/21 03:52 Catherized Urine Culture - Final NO GROWTH Laboratory Results (Last 24 hours) 11/19/21 11/18/21 11/18/21 11:51 19:22 15:22 POC Glucometer 96 Troponin I < 0.012 C. difficile Screen NEGATIVE C.difficile 027-NAP1-B1 PRESUMPTIVE NEGATIVE Orders (Last 24 hours) Category Date Time Status Discontinue Benson Cath ROUTINE Care 11/19/21 09:30 Active Discontinue Benson Cath STAT Care 11/19/21 09:27 Completed Discharge Routine Discharge 11/19/21 13:09 Ordered CDIFF (INHOUSE) [C.Difficile by PCR] Urgent Lab 11/18/21 19:22 Completed POCT GLUCOSE Stat Lab 11/19/21 11:51 Completed TROPONIN Q3H Lab 11/18/21 15:22 Completed Acetaminophen 500 mg [Tylenol Extra Strength 500 mg* Med 11/18/21 18:23 Active ] 500 mg PO Q6HPRN PRN Azithromycin 500 mg/250 ml [Zithromax 500 MG/ 250 ML Med 11/19/21 10:00 Discontinued NaCl Premix] 500 mg in 250 ml IV Q24H10 Clonazepam [Klonopin] Med 11/18/21 22:00 Active 2 mg PO QHS Diphenoxylate HCl/Atropine [Lomotil] Med 11/18/21 18:22 Active 1 tablet PO QID PRN PRN Divalproex Sodium 250 mg [Divalproex DR 250 mg Tab] Med 11/18/21 22:00 Active 500 mg PO QHS Lisinopril 10 mg [Zestril 10 MG] Med 11/18/21 22:00 Active 10 mg PO QHS Medication Intervention Med 11/18/21 13:30 Active 1 each PO .RN TO CHECK ON Medication Intervention Med 11/18/21 13:30 Active 1 each PO .RN TO CHECK ON Simvastatin 20Mg [Zocor 20Mg] Med 11/18/21 22:00 Active 20 mg PO QHS Tamsulosin HCl 0.4 mg [Flomax 0.4 MG] Med 11/18/21 22:00 Active 0.4 mg PO QHS Venlafaxine HCl ER 75 mg [Effexor XR 75 MG] Med 11/18/21 22:00 Active 150 mg PO HS Patient Care Notes (Last 24 hours) 11/19/21 11:04 Case Management Note by Micheline Norwood S/W PATIENT AND SPOUSE- THEY CONTINUE TO DENY ANY NEW NEEDS AT TIME OF DC. THEY PLAN FOR HIM TO RETURN HOME TO HIS PRIOR LEVEL OF FUNCTIONING. PATIENT CURRENTLY ON ROOM AIR Initialized on 11/19/21 11:04 - END OF NOTE 11/19/21 09:30 Nursing Note by Gaye Whitfield SPOKE WITH DR. SMITH ON THE PHONE, DISCONTINUE MEGAN. PLAN TO DISCHARGE TOMORROW Initialized on 11/19/21 09:30 - END OF NOTE - Vitals & Intake/Output Vital Signs: Vital Signs Temperature 97.9 F 11/19/21 11:45 Pulse Rate 78 11/19/21 11:45 Respiratory Rate 16 11/19/21 11:45 Blood Pressure 158/79 11/19/21 11:45 O2 Sat by Pulse Oximetry 95 11/19/21 11:45 Intake & Output: Intake & Output 11/17/21 11/18/21 11/19/21 11/20/21 11:59 11:59 11:59 11:59 Intake Total 240 1100 Output Total 850 1000 400 Balance -610 100 -400 Weight 132.4 kg 130.4 kg - Lab Result Diagrams: 11/18/21 02:50 11/18/21 02:50 Lab Results-Last 24 Hrs: Lab Results-Last 24 Hours 11/18/21 11/18/21 11/19/21 Range/Units 15:22 19:22 11:51 POC Glucometer 96 (74 to 106) mg/dL Troponin I < 0.012 (0.000-0.034) ng/mL C. difficile Screen NEGATIVE (NEGATIVE) C.difficile 027-NAP1-B1 PRESUMPTIVE NEGATIVE (NEGATIVE) Micro Results-Entire Visit: Microbiology 11/18/21 03:52 Urine Culture - Final Catherized NO GROWTH - Radiology Exams Ordered Rad Exams-Entire Visit: Radiology Procedures Category Date Time Status CHEST 1 VIEW (PORTABLE) Stat Exams 11/18/21 02:51 Completed CHEST WITH CONTRAST [CT] Stat Exams 11/18/21 04:09 Completed HEAD WITHOUT CONTRAST [CT] Stat Exams 11/18/21 04:10 Completed - Procedures and Test Procedures and Tests throughout Hospitalization: Therapy Orders & Screens 11/18/21 06:58 Oxygen Nasal Cannula 2 lpm Comment: 11/18/21 07:00 Respiratory Therapy Consult ROUTINE Comment: Reason For Exam: Discharge Exam General Appearance: no apparent distress, alert Neurologic Exam: alert, oriented x 3, cooperative, normal mood/affect, nml cerebellar function, sensation nml, No motor deficits Eye Exam: PERRL, EOMI, eyes nml inspection Ears, Nose, Throat Exam: normal ENT inspection, pharynx normal, moist mucous membranes Neck Exam: normal inspection, non-tender, supple, full range of motion Respiratory Exam: diminished breath sounds, No respiratory distress Cardiovascular Exam: regular rate/rhythm, normal heart sounds Gastrointestinal/Abdomen Exam: soft, No tenderness, No mass Male Genitalia Exam: deferred Rectal Exam: deferred Back Exam: normal inspection, normal range of motion, No CVA tenderness, No vertebral tenderness Extremity Exam: normal inspection, normal range of motion Skin Exam: normal color, warm, dry Final Diagnosis/Problem List - Final Discharge Diagnosis/Problem (1) Right lower lobe pneumonia Current Visit: Yes Status: Acute Assessment & Plan: Improved. Feeling much better wants to go home Code(s): J18.9 - PNEUMONIA, UNSPECIFIED ORGANISM (2) Shortness of breath Current Visit: Yes Status: Acute Code(s): R06.02 - SHORTNESS OF BREATH - Discharge Discharge Date: 11/19/21 Disposition: Home, Self-Care Condition: Stable Prescriptions: New Levofloxacin [Levofloxacin 500 MG Tablet] 500 mg PO DAILY 5 Days #5 tablet Continue Venlafaxine HCl [Venlafaxine HCl ER] 150 mg PO HS Divalproex Sodium [Depakote] 500 mg PO QHS Tamsulosin HCl 0.4 mg [Flomax 0.4 MG] 0.4 tab PO QHS Prazosin HCl [Minipress] 2 mg PO QHS Lurasidone HCl [Latuda] 120 mg PO QHS Lisinopril 10 mg [Zestril 10 MG] 10 mg PO QHS clonazePAM [Clonazepam] 2 mg PO QHS Atorvastatin Calcium 20 mg PO QHS Instructions: Pneumonia, Adult (DC) Additional Instructions: KEEP YOUR ALREADY SCHEDULED APPOINTMENT AT THE [facility] ON November. Follow up with: HOSPITAL,'S [Primary Care Provider] - (KEEP YOUR SCHEDULED APPOINTMENT AT [facility] ON November. PLEASE TAKE THESE HOSPITAL RECORDS WITH YOU, SO THEY CAN UPDATE YOUR RECORDS.)
== END 2021-11-19 14:14 | disposition home or self-care (01) ==
LOC: ED 02:47 → MED SURG 07:55
PROVIDERS: ADMIT General Practice; ATTEND General Practice
DX: J18.9 Pneumonia, unspecified organism (principal); R06.02 Shortness of breath; R41.0 Disorientation, unspecified; I25.10 Atherosclerotic heart disease of native coronary artery without angina pectoris; I10 Essential (primary) hypertension; W18.30XA Fall on same level, unspecified, initial encounter; Z79.899 Other long term (current) drug therapy; Z72.0 Tobacco use
CPT/HCPCS: 36000; 36415; 51702; 70450; 71045; 71260; 80053; 81001; 82550; 82947; 83036; 83605; 83735; 83880; 84484; 85025; 85379; 86308; 87040; 87086; 87400; 87493; 87651; 93005; 93268; 94760; 94762; 96360; 96365; 96367; 96374; 99000; 99285; J0456; J0696; J1200; P9612; A9270-GY; G0378

== ENCOUNTER → 2023-02-26 | Emergency (ER) | payer OTHER ==
[~2023-02-26] MED LIST: KLONOPIN ONE
== END ==
LOC: ED 02:54
DX: F41.9 Anxiety disorder, unspecified (principal); F31.9 Bipolar disorder, unspecified; Z79.899 Other long term (current) drug therapy; Z72.0 Tobacco use
CPT/HCPCS: 99282

== ENCOUNTER 2024-03-30 08:13 | Day surgery (SDC) | payer OTHER ==
[2024-03-30] MEDS ORDERED: Lactated Ringers 1,000 ML IV ONE ×2 (08:22→11:41)
[2024-03-30 08:34] VITALS: RESP 18; TEMP 97.3
[2024-03-30 08:41] LABS: Absolute Neutrophil Ct (ANC) 5.28 x10^3/uL (1.78-5.38); BASOPHIL % 0.6 % (0.2-1.2); Basophil (Absolute #) 0.05 x10^3/uL (0.01-0.08); Eosinophil % 2.5 % (0.8-7.0); Eosinophil (Absolute #) 0.22 x10^3/uL (0.04-0.54); Hemoglobin 15.6 g/dL (13.7-17.5); IMMATURE GRAN # 0.03 x10^3u/L (0.001-0.031); IMMATURE GRAN % 0.3 % (0.001-0.429); Lymphocyte (Absolute #) 2.44 x10^3/uL (1.32-3.57); Mean Cell Volume 89.4 fL (79.0-92.2); Mean Corpuscular Hemoglobin 29.7 pg (25.7-32.2); Mean Corpuscular Hgb Concent. 33.2 g/dL (32.3-36.5); Mean Platelet Volume 10.9 fL (9.4-12.4); Neutrophil % 60.6 % (34.0-67.9); Platelet Count 237 x10^3/uL (163-337); Red Blood Count 5.26 x10^6/uL (4.63-6.08); Red Cell Distribution Width 13.3 % (11.6-14.4); White Blood Count 8.7 x10^3/uL (4.23-9.07)
[2024-03-30] MEDS: Lactated Ringers 1,000 ML IV SCH (08:51)
[2024-03-30 08:54] LABS: ANION GAP 11.4 MEQ/L (5-15); Calcium 8.8 mg/dL (8.4-10.2); Creatinine 1 0.77 mg/dL (0.66-1.25); EST GLOMERULAR FILTRATION RATE 96.9 ML/MIN; Potassium 3.6 mmol/L (3.5-5.1); Total Protein 6.9 g/dL (6.3-8.2)
[2024-03-30] MEDS ORDERED: Xylocaine-Mpf 2% 5 Ml Vial ONE (11:29)
[2024-03-30] MEDS ORDERED: DIPRIVAN 200 MG/20 ML IV ONE ×2 (11:31→11:41)
[2024-03-30 12:43] VITALS: O2SAT 98
[2024-03-30 12:55] VITALS: BP 164/92; PULSE 67
--- NOTE | 2024-03-31 09:09 | OP ---
SURGERY DATE/TIME: 03/30/2024 1143 - 1215 PREOPERATIVE DIAGNOSES: 1) Unintentional 60-pound weight loss. 2) Nausea, vomiting, melena. History of colon polyps. History of peptic ulcer. POSTOPERATIVE DIAGNOSES: 1) Duodenitis. 2) Multiple colon polyps. 3) Sliding hiatal hernia. PROCEDURE: 1) Esophagogastroduodenoscopy with biopsy. 2) Colonoscopy with multiple hot snare polypectomies. SURGEON: Diony Martins MD ANESTHESIA: IV anesthesia. PATIENT CONDITION: Stable. COMPLICATIONS: None. SPECIMENS: As below. HISTORY OF PRESENT ILLNESS: Patient presents with a history of polyps, peptic ulcers, and has had an unintentional weight loss and melena. I had discussion with the patient, and he elects to proceed with endoscopy. FINDINGS: Moderate duodenitis, multiple colon polyps, fair preparation. DESCRIPTION OF PROCEDURE AND FINDINGS: Patient brought to the endoscopy suite. Routinely positioned, prepared, and time-out performed. IV anesthesia induced by Anesthesia. Gastroscope was inserted through the mouth and advanced to the third portion of the duodenum. Duodenum has moderate gastritis with erythema, friability, nodularity in the second portion of the duodenum and first portion of the duodenum. Solution Analyst biopsies are taken with biopsy forceps. The stomach is relatively normal in appearance. There is about a 1 cm sliding hiatal hernia. There is just minimal gastritis with erythema. Biopsies taken of the antrum for H pylori. Retroflexion is with the small hiatal hernia. The stomach is then suctioned out. Esophagus is normal in appearance. Rectal examination externally normal. Digital rectal exam normal. There are just some minimal external hemorrhoids on exam. The colonoscope inserted and advanced to the cecum, confirmed by the ileocecal valve and the appendiceal orifice. Withdrawal time is greater than 6 minutes. The preparation is an Aronchick fair preparation. There are multiple colon polyps identified on removal, all removed with a hot snare. 1) Cecal polyps, 5 mm and 3 mm, hot snare. 2) Hepatic flexure 10 mm polyp, pedunculated, hot snare. 3) Descending colon polyp 5 mm sessile, hot snare. 4) Rectosigmoid 3 mm sessile, hot snare. Retroflexion is normal. He also has innumerable hyperplastic-appearing polyps in the sigmoid colon. RECOMMENDATIONS: Protonix 40 mg oral daily. Follow up in 2 to 4 weeks in the office for pathology results, and then we would probably set him up for a 2-year colonoscopy with as many polyps.
== END 2024-03-30 13:06 | disposition home or self-care (01) ==
LOC: SDC 08:13
PROVIDERS: ATTEND Surgery
DX: Z09 Encounter for follow-up examination after completed treatment for conditions other than malignant neoplasm (principal); Z86.010 Personal history of colon polyps; Z87.19 Personal history of other diseases of the digestive system; R11.2 Nausea with vomiting, unspecified; K92.1 Melena; R63.4 Abnormal weight loss; K29.80 Duodenitis without bleeding; K44.9 Diaphragmatic hernia without obstruction or gangrene; K64.4 Residual hemorrhoidal skin tags; D12.7 Benign neoplasm of rectosigmoid junction; D12.0 Benign neoplasm of cecum; D12.4 Benign neoplasm of descending colon; D12.3 Benign neoplasm of transverse colon
CPT/HCPCS: 36415; 80053; 85025; 93005; J2704

== ENCOUNTER 2024-09-06 04:42 | Emergency (ER) | payer OTHER ==
[2024-09-06 04:50] VITALS: TEMP 99.3
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
[2024-09-06] MEDS ORDERED: Sodium Chloride 0.9% 1000 ML 1,000 ML ONE (05:28)
[2024-09-06] MEDS ORDERED: Sterile H2O 10 ml IJ ONE (05:28)
[2024-09-06] MEDS: Sodium Chloride 0.9% 1000 ML 1,000 ML IV STA (05:28)
[2024-09-06] MEDS ORDERED: solu-MEDROL ONE (05:28)
[2024-09-06] MEDS: solu-MEDROL 125 MG, Sterile H2O 10 ml 2 ML IV ONE (05:29)
[2024-09-06] MEDS ORDERED: DUONEB 0.5-3 MG/3 ml Neb IH ONE (05:29)
[2024-09-06] MEDS: DUONEB 0.5-3 MG/3 ml Neb IH ONE (05:31)
[2024-09-06 05:33] LABS: Absolute Neutrophil Ct (ANC) 5.97 x10^3/uL (1.78-5.38); BASOPHIL % 0.5 % (0.2-1.2); Basophil (Absolute #) 0.04 x10^3/uL (0.01-0.08); Eosinophil % 1.4 % (0.8-7.0); Eosinophil (Absolute #) 0.11 x10^3/uL (0.04-0.54); Hematocrit 43.2 % (40.1-51.0); Hemoglobin 14.2 g/dL (13.7-17.5); IMMATURE GRAN # 0.02 x10^3u/L (0.001-0.031); IMMATURE GRAN % 0.2 % (0.001-0.429); Lymphocyte (Absolute #) 0.99 x10^3/uL (1.32-3.57); Lymphocytes % 12.3 % (21.8-53.1); Mean Cell Volume 87.8 fL (79.0-92.2); Mean Corpuscular Hemoglobin 28.9 pg (25.7-32.2); Mean Corpuscular Hgb Concent. 32.9 g/dL (32.3-36.5); Mean Platelet Volume 11.2 fL (9.4-12.4); Monocyte (Absolute #) 0.91 x10^3/uL (0.30-0.82); Monocytes % 11.3 % (5.3-12.2); Neutrophil % 74.3 % (34.0-67.9); Platelet Count 195 x10^3/uL (163-337); Red Blood Count 4.92 x10^6/uL (4.63-6.08); Red Cell Distribution Width 13.2 % (11.6-14.4)
[2024-09-06 05:40] LABS: INFLUENZA A NEGATIVE (NEGATIVE); INFLUENZA B NEGATIVE (NEGATIVE); RESPIRATORY SYNCTIAL VIRUS NEGATIVE (NEGATIVE); SARS-CoV-2 Xpert Express NEGATIVE (NEGATIVE)
[2024-09-06 05:49] LABS: ANION GAP 12.3 MEQ/L (5-15); BILIRUBIN,TOTAL 0.8 mg/dL (0.2-1.3); Calcium 8.4 mg/dL (8.4-10.2); Creatinine 1 0.8 mg/dL (0.66-1.25); EST GLOMERULAR FILTRATION RATE 95.8 ML/MIN; Potassium 3.2 mmol/L (3.5-5.1); Total Protein 6.8 g/dL (6.3-8.2)
[2024-09-06 06:09] VITALS: BP 133/72
[2024-09-06 06:17] VITALS: PULSE 88; RESP 28
[2024-09-06 06:49] VITALS: O2SAT 97
--- NOTE | 2024-09-06 08:56 | XRAY ---
Indication: Wheezing. Short of breath. Comparison: November 18, 2021 PA/lateral chest inflated with minimal right middle lobe discoid atelectasis/scarring. Remaining lungs clear. Heart not enlarged again with CABG. Bony thorax intact again with osteopenia and mild degenerative changes. No acute findings.
== END 2024-09-06 06:58 | disposition home or self-care (01) ==
LOC: ED 04:42
DX: R06.02 Shortness of breath (principal); R05.1 Acute cough; R53.1 Weakness; I10 Essential (primary) hypertension; E78.5 Hyperlipidemia, unspecified; Z79.52 Long term (current) use of systemic steroids; Z79.899 Other long term (current) drug therapy; Z72.0 Tobacco use
CPT/HCPCS: 0241U; 36415; 71046; 80053; 83605; 83880; 84145; 84484; 85025; 93005; 94640; 96374; 99285; 99284; J2919; A9270-GY

== ENCOUNTER 2024-09-08 12:14 | Emergency (ER) | payer OTHER ==
[2024-09-08] MEDS ORDERED: DUONEB 0.5-3 MG/3 ml Neb IH ONE (12:18)
[2024-09-08 12:20] VITALS: TEMP 97.1
[2024-09-08] MEDS: DUONEB 0.5-3 MG/3 ml Neb IH ONE (12:22)
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
[2024-09-08 13:19] LABS: Absolute Neutrophil Ct (ANC) 12.68 x10^3/uL (1.78-5.38); BASOPHIL % 0.1 % (0.2-1.2); Basophil (Absolute #) 0.02 x10^3/uL (0.01-0.08); Eosinophil % 0.1 % (0.8-7.0); Eosinophil (Absolute #) 0.01 x10^3/uL (0.04-0.54); Hematocrit 43.2 % (40.1-51.0); Hemoglobin 14.2 g/dL (13.7-17.5); IMMATURE GRAN % 0.7 % (0.001-0.429); Lymphocytes % 7.7 % (21.8-53.1); Mean Cell Volume 88.9 fL (79.0-92.2); Mean Corpuscular Hemoglobin 29.2 pg (25.7-32.2); Mean Corpuscular Hgb Concent. 32.9 g/dL (32.3-36.5); Mean Platelet Volume 11.5 fL (9.4-12.4); Monocyte (Absolute #) 0.41 x10^3/uL (0.30-0.82); Monocytes % 2.9 % (5.3-12.2); Neutrophil % 88.5 % (34.0-67.9); Platelet Count 216 x10^3/uL (163-337); Red Blood Count 4.86 x10^6/uL (4.63-6.08); Red Cell Distribution Width 13.2 % (11.6-14.4); White Blood Count 14.3 x10^3/uL (4.23-9.07)
[2024-09-08 13:32] LABS: ALBUMIN 3.7 g/dL (3.5-5.0); ANION GAP 11.8 MEQ/L (5-15); BILIRUBIN,TOTAL 0.3 mg/dL (0.2-1.3); Calcium 8.8 mg/dL (8.4-10.2); Creatinine 1 0.73 mg/dL (0.66-1.25); EST GLOMERULAR FILTRATION RATE 98.5 ML/MIN; Potassium 3.5 mmol/L (3.5-5.1); Total Protein 6.4 g/dL (6.3-8.2)
[2024-09-08 13:44] LABS: D-DIMER QUANTITATIVE 0.35 mg/L (0.0-0.50); INR 0.99 (0.8-3.0); PROTIME 10.8 SECONDS (9.4-12.5)
[2024-09-08] MEDS ORDERED: Sodium Chloride 0.9% 1000 ML 1,000 ML ONE (14:10)
[2024-09-08] MEDS: Sodium Chloride 0.9% 1000 ML 1,000 ML IV STA (14:12)
[2024-09-08 14:37] LABS: Appearance Clear (Clear); Bacteria None Seen /HPF (None Seen); Bilirubin Negative (Negative); Blood Negative (Negative); Epithelial Cells None Seen /HPF (None Seen); Glucose, Urine Negative (Negative); Hyaline Casts NONE SEEN /LPF (0-2); Ketones Negative (Negative); Leukocyte Esterase Negative (Negative); Nitrite Negative (Negative); Ph 5.5 (4.6-8.0); Protein,Urine Dip Negative (Negative); RBC 0-2 /HPF (0-5); Specific Gravity 1.025 (1.005-1.030); Urobilinogen 0.2 mg/dL (0.2); WBC 0-2 /HPF (0-5)
[2024-09-08 15:01] LABS: Amphetamine,Urine NEGATIVE (NEGATIVE); Barbiturate,Urine NEGATIVE (NEGATIVE); Benzodiazepine,Urine NEGATIVE (NEGATIVE); Cocaine,Urine NEGATIVE (NEGATIVE); Methadone,Urine NEGATIVE (NEGATIVE); Opiate,Urine NEGATIVE (NEGATIVE); PCP,Urine NEGATIVE (NEGATIVE); THC,Urine NEGATIVE (NEGATIVE)
--- NOTE | 2024-09-08 15:39 | XRAY ---
Indication: Cough. Short of breath. Multiple contiguous axial images obtained through the chest without contrast. Comparison: November 18, 2021 Lungs again demonstrates minimal right middle lobe subsegmental atelectasis/scarring and tiny left lower lobe calcified granulomas. No suspicious pulmonary mass/nodule, infiltrate, or effusion. Heart not enlarged again with CABG surgery and scattered coronary calcifications. Aorta minimally arteriosclerotic without aneurysm. Stable tiny subcarinal calcified nodes. No pathologic mediastinal lymphadenopathy. Bony thorax intact again with mild degenerative changes throughout spine and sternotomy wires. Limited upper abdomen again demonstrates tiny splenic calcified granulomas and 2.5 cm right upper renal exophytic cyst. Left mid kidney demonstrates 1.8 cm round slightly dense exophytic mass not previously included, either solid renal mass versus complex/viscous cyst. Impression: 1. 1.8 cm left renal round and dense exophytic mass. Rule out solid renal mass versus complex/viscous cyst. Sonogram may help differentiate solid versus cyst. 2. Chronic findings including atelectasis/scarring, arteriosclerotic disease, chronic bony findings, right renal cyst, and old granulomatous disease. No acute findings on this noncontrast exam. 3. Remaining CT chest without contrast exam is negative.
[2024-09-08 15:54] VITALS: O2SAT 97
[2024-09-08] MEDS ORDERED: ROCEPHIN 1 GM / 100 ML NaCl 1 GM/100 ML IVPB IV ONE (15:57)
[2024-09-08] MEDS: ROCEPHIN 1 GM / 100 ML NaCl 1 GM/100 ML IVPB IV ONE (15:59)
[2024-09-08 16:04] VITALS: BP 169/95; PULSE 70; RESP 22
== END 2024-09-08 17:04 | disposition home or self-care (01) ==
LOC: ED 12:14
DX: J98.8 Other specified respiratory disorders (principal); D72.829 Elevated white blood cell count, unspecified; N28.89 Other specified disorders of kidney and ureter; R06.02 Shortness of breath; R05.1 Acute cough; E78.5 Hyperlipidemia, unspecified; I10 Essential (primary) hypertension; Z79.52 Long term (current) use of systemic steroids; Z79.899 Other long term (current) drug therapy
CPT/HCPCS: 36415; 71250; 80053; 80307; 81001; 83605; 83880; 84484; 85025; 85379; 85610; 87040; 93005; 94640; 96360; 96365; 99285; J0696; A9270-GY

== ENCOUNTER 2024-11-14 21:46 | Emergency (ER) | payer OTHER ==
[2024-11-14 22:16] VITALS: TEMP 102.3
[2024-11-14] MEDS ORDERED: solu-MEDROL ONE (22:32)
[2024-11-14] MEDS ORDERED: Sterile H2O 10 ml IJ ONE (22:32)
[2024-11-14] MEDS ORDERED: TORAdol 30 mg Injection ONE (22:32)
[2024-11-14] MEDS: solu-MEDROL 125 MG, Sterile H2O 10 ml 2 ML IV ONE (22:33)
[2024-11-14] MEDS ORDERED: Compazine 10 MG/2 ML ONE (22:33)
[2024-11-14] MEDS ORDERED: DUONEB 0.5-3 MG/3 ml Neb IH ONE (22:33)
[2024-11-14] MEDS: TORAdol 30 mg Injection IV ONE (22:34)
[2024-11-14] MEDS: Compazine 10 MG/2 ML IV ONE (22:34)
[2024-11-14] MEDS: DUONEB 0.5-3 MG/3 ml Neb IH ONE (22:35)
[2024-11-14 22:39] LABS: Absolute Neutrophil Ct (ANC) 4.87 x10^3/uL (1.78-5.38); BASOPHIL % 0.5 % (0.2-1.2); Basophil (Absolute #) 0.03 x10^3/uL (0.01-0.08); Eosinophil % 0.9 % (0.8-7.0); Eosinophil (Absolute #) 0.06 x10^3/uL (0.04-0.54); Hematocrit 43.7 % (40.1-51.0); Hemoglobin 14.4 g/dL (13.7-17.5); IMMATURE GRAN # 0.02 x10^3u/L (0.001-0.031); IMMATURE GRAN % 0.3 % (0.001-0.429); Lymphocyte (Absolute #) 0.84 x10^3/uL (1.32-3.57); Lymphocytes % 12.7 % (21.8-53.1); Mean Cell Volume 88.5 fL (79.0-92.2); Mean Corpuscular Hemoglobin 29.1 pg (25.7-32.2); Mean Platelet Volume 11.7 fL (9.4-12.4); Monocyte (Absolute #) 0.77 x10^3/uL (0.30-0.82); Monocytes % 11.7 % (5.3-12.2); Neutrophil % 73.9 % (34.0-67.9); Platelet Count 192 x10^3/uL (163-337); Red Blood Count 4.94 x10^6/uL (4.63-6.08); White Blood Count 6.6 x10^3/uL (4.23-9.07)
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
[2024-11-14 22:47] LABS: ALBUMIN 3.8 g/dL (3.5-5.0); ANION GAP 14.7 MEQ/L (5-15); BILIRUBIN,TOTAL 0.8 mg/dL (0.2-1.3); Calcium 8.1 mg/dL (8.4-10.2); Creatinine 1 0.69 mg/dL (0.66-1.25); EST GLOMERULAR FILTRATION RATE 100.2 ML/MIN; Potassium 4.1 mmol/L (3.5-5.1); Total Protein 6.4 g/dL (6.3-8.2)
[2024-11-14 22:58] LABS: NT PRO BNPII 708 pg/mL (<300); TROPONIN < 0.012 ng/mL (0.000-0.033)
[2024-11-14 23:02] VITALS: PULSE 82; O2SAT 96
[2024-11-14 23:30] LABS: INFLUENZA A NEGATIVE (NEGATIVE); RESPIRATORY SYNCTIAL VIRUS NEGATIVE (NEGATIVE); SARS-CoV-2 Xpert Express NEGATIVE (NEGATIVE)
[2024-11-14] MEDS: Magnesium 1 Gm / 100 Ml D5W*** 100 ML IV SCH (23:36)
[2024-11-14] MEDS ORDERED: Magnesium 1 Gm / 100 Ml D5W*** 100 ML IV ONE (23:36)
[2024-11-14 23:40] LABS: INFLUENZA B POSITIVE (NEGATIVE)
[2024-11-15 00:07] VITALS: BP 140/69; RESP 23
--- NOTE | 2024-11-15 12:43 | XRAY ---
Indication: Cough. Comparison: September 06, 2024 Portable chest now demonstrates subtle bibasilar hazy interstitial alveolar opacities. No consolidation/large effusion. Heart not enlarged again with CABG. Bony thorax intact.
== END 2024-11-15 00:26 | disposition left against medical advice (07) ==
LOC: ED 21:46
DX: J10.1 Influenza due to other identified influenza virus with other respiratory manifestations (principal); R50.9 Fever, unspecified; J44.1 Chronic obstructive pulmonary disease with (acute) exacerbation; R94.31 Abnormal electrocardiogram [ECG] [EKG]; R91.8 Other nonspecific abnormal finding of lung field; R05.1 Acute cough; M79.10 Myalgia, unspecified site; R51.9 Headache, unspecified; E78.5 Hyperlipidemia, unspecified; I10 Essential (primary) hypertension; Z79.52 Long term (current) use of systemic steroids; Z79.899 Other long term (current) drug therapy; Z72.0 Tobacco use
CPT/HCPCS: 0241U; 36415; 71045; 80053; 83735; 83880; 84484; 85025; 85379; 87040; 93005; 93041; 94640; 94760; 96365; 96375; 99285; 96374; 99284; J1885; J2919; J3475; A9270-GY